=== PATIENT | male | born 1965 | race Native Hawaiian/Other Pacific Islander ===

== ENCOUNTER 2021-05-23 13:54 | Outpatient (CLI) | payer OTHER ==
[~2021-05-23 13:54] MED LIST: ALBU0.0813 INH; BREO ELLIPTA 101 INH INH; PRINIVIL10 MG PO; PROAIR HFA INH; SIMV40TA57 PO
== END 2021-05-23 19:46 | disposition home or self-care (01) ==
LOC: RESP 13:54
PROVIDERS: ATTEND Nurse Practitioner Family
DX: J44.9 Chronic obstructive pulmonary disease, unspecified (principal)